=== PATIENT | female | born 1990 | race Native Hawaiian/Other Pacific Islander ===

== ENCOUNTER 2022-11-14 08:19 | Emergency (ER) | payer OTHER ==
[~2022-11-14] VITALS: Ht 170.2 cm; Wt 137.4 kg
[2022-11-14 09:04] LABS: PLATELET COUNT 365 K/uL (152-353)
[2022-11-14 09:44] VITALS: BP 144/87; TEMP 101.5
== END 2022-11-14 09:44 | disposition home or self-care (01) ==
LOC: ED 08:19
PROVIDERS: Family Medicine
DX: J02.0 Streptococcal pharyngitis (principal); J35.8 Other chronic diseases of tonsils and adenoids; R50.9 Fever, unspecified; I10 Essential (primary) hypertension
CPT/HCPCS: 36415; 85027; 87502; 87635; 87651; 96372; 99283; J0696; U0003

== ENCOUNTER 2022-11-21 09:23 | Emergency (ER) | payer OTHER ==
[~2022-11-21] VITALS: Ht 170.2 cm; Wt 113.4 kg
[2022-11-21 09:25] VITALS: BP 148/86
[2022-11-21 10:11] LABS: PLATELET COUNT 582 K/uL (152-353)
[2022-11-21 10:20] LABS: POTASSIUM 3.7 mmol/L (3.6-5.2)
[2022-11-21 12:04] VITALS: TEMP 102.4
== END 2022-11-21 12:04 | disposition home or self-care (01) ==
LOC: ED 09:23
PROVIDERS: Family Medicine
DX: J03.90 Acute tonsillitis, unspecified (principal); J02.0 Streptococcal pharyngitis
CPT/HCPCS: 80053; 81025; 83605; 85027; 87635; 87651; 96361; 96365; 96375; 99284; J1100; Q9963; U0003